=== PATIENT | female | born 1970 | race Caucasian/White ===

== ENCOUNTER → 2020-11-14 12:37 | Outpatient (CLI) | payer BC, SELFPAY ==
--- NOTE | ~2020-11-14 | US_ITS ---
EXAMINATION: US pelvic complete w TV DATE: 11/14/2020 13:36 INDICATION: Pelvic pain Comparison:No prior studies for comparison. TECHNIQUE: Multiple transabdominal and endovaginal sonographic images of the pelvis performed. FINDINGS: The uterus measures 10.1 x 5.2 x 5.2 cm. The endometrial complex measures 8 mm. The right ovary measures 2.7 x 1.8 x 2.4 cm and the left ovary measures 2 x 1.1 x 1.7 cm. There are small follicles in each ovary. There is no free fluid in the pelvis. There are no abnormal masses seen on either side. IMPRESSION: 1. Unremarkable pelvic ultrasound. Reviewed, dictated and finalized at location A. [facility]
== END ==
PROVIDERS: Visit Provider Physician Assistant
DX: R10.2 Pelvic and perineal pain (principal)
CPT/HCPCS: 76830; 76856

== ENCOUNTER 2022-07-05 18:55 | Emergency (ER) | payer BC, SELFPAY ==
--- NOTE | ~2022-07-05 | CT_ITS ---
EXAMINATION: CT brain wo con DATE: 07/05/2022 21:19 INDICATION: h/a . TECHNIQUE: Computed tomography (CT) of the head was performed without intravenous contrast. The mA wa s adjusted according to patient size. Iterative reconstruction technique was employed. The dose-lengt h product was 605.33 mGy-cm. COMPARISON: None FINDINGS: No acute intracranial hemorrhage or extra-axial fluid collection. No hydrocephalus, mass, or herniation. No acute ischemic infarct. Unremarkable dural venous sinus attenuation. No acute osseous abnormality. The aerated spaces are clear. IMPRESSION: No acute intracranial process. Reviewed, dictated and finalized at location K.
[2022-07-05 18:59] VITALS: BP 129/82; PULSE 93; RESP 18; TEMP 36.8; O2SAT 100
--- NOTE | 2022-07-05 21:41 | ED.GENADULT ---
HPI - General Adult General Chief complaint: Headache Stated complaint: NICOLAS x3 weeks Time Seen by Provider: 07/05/22 21:06 History of Present Illness HPI narrative: 52-year-old female with history of daily headaches presenting the emergency department for evaluation of a headache for the last 3 to 4 weeks. Patient states normally her headaches are across her forehead but she states this headache is behind her eyes. Patient has taken multiple medications including NSAIDs decongestants and sumatriptan for the headache with no significant improvement. Patient denies any associated numbness or weakness. Patient does have a remote history of thyroid cancer and she was 21. Related Data Home Medications Medication Instructions Recorded Confirmed levothyroxine 137 mcg capsule 137 mcg PO DAILY 11/25/21 11/25/21 Allergies Allergy/AdvReac Type Severity Reaction Status Date / Time acetaminophen Allergy Unknown Unknown Verified 11/25/21 15:46 dichloralphenazone Allergy Unknown Unknown Verified 11/25/21 15:46 isometheptene Allergy Unknown Unknown Verified 11/25/21 15:46 Shrimp Allergy Unknown Unknown Uncoded 11/11/20 08:56 Review of Systems Review of Systems: CONSTITUTIONAL: Denies fever, chills, or sweats. EYES: Denies visual changes, redness, or discharge. ENT: Denies rhinorrhea, congestion, sore throat, or otalgia. CARDIOVASCULAR: Denies chest pain, palpitations, or edema. RESPIRATORY: Denies cough or dyspnea. GASTROINTESTINAL: Denies abdominal pain, nausea, vomiting, or diarrhea. GENITOURINARY: Denies dysuria or hematuria. SKIN: Denies rash or itching. MUSCULOSKELETAL: Denies back pain, joint pain, or myalgia. NEUROLOGIC: Headache but denies any associated numbness or weakness. PSYCHIATRIC: Denies anxiety or depression. [facility] Social History Social History Alcohol intake: never Exam Narrative: APPEARANCE: Well appearing, no pain, no distress, well-nourished. HEAD: normocephalic, atraumatic. EYES: PERRLA/EOMI, conjunctivae clear. NOSE: Normal no drainage NECK: Supple. No adenopathy, no masses. RESPIRATORY: Airway patent, respirations nonlabored. Clear to auscultation bilaterally, no rales, rhonchi, wheezing. CARDIOVASCULAR: Regular rate and rhythm without murmurs rubs or gallops. ABDOMINAL: Soft, nontender, nondistended, normal bowel sounds MUSCULOSKELETAL: Moves all extremities. Strength/ROM intact, No edema, No calf tenderness. NEURO: Alert. Cranial nerves II through XII intact. Grossly intact. No ataxia, normal strength and reflexes. SKIN: Warm, dry. Normal Color Course Course Emergency Course: Patient does feel improved with treatment. Patient is requesting discharge to home. Patient states her headache is resolved. Vital Signs Vital signs: Vital Signs Temperature 98.2 F 07/05/22 18:59 Pulse Rate 93 07/05/22 18:59 Respiratory Rate 18 07/05/22 18:59 Blood Pressure 129/82 07/05/22 18:59 Pulse Oximetry 100 07/05/22 18:59 Oxygen Delivery Room Air 07/05/22 18:59 Temperature 98.2 F 07/05/22 18:59 Pulse Rate 75 07/05/22 23:27 Respiratory Rate 18 07/05/22 23:27 Blood Pressure 125/86 07/05/22 23:27 Pulse Oximetry 98 07/05/22 23:27 Oxygen Delivery Room Air 07/05/22 18:59 Medical Decision Making Vital Signs Vital Signs: Vital Signs Temperature 98.2 F 07/05/22 18:59 Pulse Rate 93 07/05/22 18:59 Respiratory Rate 18 07/05/22 18:59 Blood Pressure 129/82 07/05/22 18:59 Pulse Oximetry 100 07/05/22 18:59 Oxygen Delivery Room Air 07/05/22 18:59 Temperature 98.2 F 07/05/22 18:59 Pulse Rate 75 07/05/22 23:27 Respiratory Rate 18 07/05/22 23:27 Blood Pressure 125/86 07/05/22 23:27 Pulse Oximetry 98 07/05/22 23:27 Oxygen Delivery Room Air 07/05/22 18:59 Discharge Plan Discharge Clinical Impression: Headache Patient Disposition: Home, Self-Care Condition: Stable
[2022-07-05] MEDS: PROCHLORPERAZINE EDISYLATE 10 MG/2 ML VIAL IV PUSH (22:06)
[2022-07-05] MEDS: diphenhydrAMINE HCl INJ 50 MG/ML VIAL 25 MG IV PUSH (22:06)
[2022-07-05] MEDS: KETOROLAC 15 MG/ML VIAL (*BKC) IV PUSH (22:06)
[2022-07-05] MEDS: SODIUM CHLORIDE 0.9% IV 1,000 ML 999 ML IV CONT (22:07)
[2022-07-05 23:27] VITALS: BP 125/86; PULSE 75; RESP 18; O2SAT 98
== END 2022-07-05 23:26 | disposition home or self-care (01) ==
PROVIDERS: Emergency Provider Emergency Medicine; PCP Family Medicine
DX: R51.9 Headache, unspecified (principal); Z85.850 Personal history of malignant neoplasm of thyroid
CPT/HCPCS: 70450; 96361; 96374; 96375; 99284; J0780; J1200; J1885; J7030

== ENCOUNTER 2022-08-20 15:20 | Observation (INO) | payer BC, SELFPAY ==
--- NOTE | ~2022-08-20 | MR_ITS ---
EXAMINATION: MR brain/brain stem wo/w con DATE: 08/21/2022 07:31 CDT INDICATION: Today. Right-sided paresthesias. TECHNIQUE: Magnetic resonance imaging (MRI) of the brain and brainstem was performed without and with 13 cc MultiHance intravenous contrast. Sequences included sagittal and axial T1-weighted SE, axial diffusion-weighted FS SE, axial T2*-weighted GRE, axial T2-weighted FLAIR Propeller, and axial T2-miguelangel ghted Propeller. Apparent diffusion coefficient (ADC) maps were created. COMPARISON: Comparison to multiple prior studies sequentially, with oldest reviewed study dated 12/2014. FINDINGS: The brain volume and ventricular system are within normal limits. The brain parenchymal si gnal intensity pattern and melo/white matter is normal and there is no evidence of hemorrhage, space occupying masses or infarctions. The flow signal voids of the major arterial structures about the [place] and within the suresh r dural venous sinuses appear grossly unremarkable and patent. The seventh and eighth cranial nerve complexes are normal. The mid sagittal image demonstrates a normal craniovertebral junction and cleo us callosum. Small mucous retention cyst right maxillary sinus. No abnormal contrast enhancement was appreciated. IMPRESSION: 1: No acute intracranial abnormality. Reviewed, dictated and finalized at location A.
--- NOTE | ~2022-08-20 | CT_ITS ---
EXAMINATION: CT BRAIN W/O DATE: 08/20/2022 17:41 INDICATION: Headache. TECHNIQUE: Computed tomography (CT) of the head was performed without intravenous contrast. The dose- length product was 605.33 mGy-cm. Automated exposure control and iterative reconstruction technique w ere employed. COMPARISON: CT dated 07/05/2022 FINDINGS: Normal brain parenchymal volume for age. Normal melo-white differentiation. No acute intrac ranial hemorrhage, infarction, mass or mass effect. No ventriculomegaly or midline shift. Midline sagittal images demonstrate a normal corpus callosum, c raniovertebral junction and sella turcica. Basilar cisterns are patent. Paranasal sinuses and mastoids are pneumatized. No depressed skull fractures. IMPRESSION: 1. No acute intracranial abnormality. Reviewed, dictated and finalized at location A.
[2022-08-20 15:55] VITALS: BP 114/71; PULSE 76; RESP 16; TEMP 36.3; O2SAT 99
[2022-08-20 17:33] VITALS: BP 132/78; PULSE 80; RESP 16; O2SAT 100
[2022-08-20 17:45] VITALS: BP 132/78; PULSE 80; RESP 18; O2SAT 100
--- NOTE | 2022-08-20 18:04 | ED.HA ---
HPI - Headache General Chief Complaint: Headache <Estella Sevilla PA-C - Last Filed: 08/20/22 20:26> Stated Complaint: headache <TITUS Veronica Last Filed: 08/20/22 20:26> Time Seen by Provider: 08/20/22 17:28 <Estella Sevilla PA-C - Last Filed: 08/20/22 20:26> Source: patient <TITUS Veronica Last Filed: 08/20/22 20:26> Mode of arrival: ambulatory <TITUS Veronica Last Filed: 08/20/22 20:26> Limitations: no limitations <TITUS Veronica Last Filed: 08/20/22 20:26> History of Present Illness HPI Narrative: This is a 52-year-old female that presents the emergency department for headaches ongoing over the last month. Reports she does have history of tension headaches and migraine headaches. But she has been having worsening headaches over the last couple of months. She was evaluated in the ER for this and had a migraine cocktail with improvement. Reports over the last couple of days she has had right-sided paresthesias associated with her headaches. Also reports she has had difficulty concentrating. Denies vision changes, vomiting, or weakness. <Estella Sevilla PA-C - Last Filed: 08/20/22 20:26> Related Data Home Medications: Home Medications Medication Instructions Recorded Confirmed levothyroxine 137 mcg capsule 137 mcg PO DAILY 11/25/21 08/20/22 cholecalciferol (vitamin D3) 50 50 mcg PO DAILY 08/20/22 08/20/22 mcg (2,000 unit) capsule loratadine 10 mg tablet (Claritin) 10 mg PO DAILY 08/20/22 08/20/22 <TITUS Veronica Last Filed: 08/20/22 20:26> Allergies/Adverse Reactions: Allergies Allergy/AdvReac Type Severity Reaction Status Date / Time dichloralphenazone Allergy Unknown Hyperactive Verified 08/20/22 16:02 isometheptene Allergy Unknown Hyperactive Verified 08/20/22 16:02 Shrimp Allergy Unknown Swelling Uncoded 08/20/22 16:02 of Lip/Tongue/Throat <Estella Sevilla PA-C - Last Filed: 08/20/22 20:26> Review of Systems Review of Systems: CONSTITUTIONAL: Denies fever EYES: Denies visual changes GASTROINTESTINAL: Denies vomiting NEUROLOGIC: Reports headache. Denies numbness, or weakness. <Estella Sevilla PA-C - Last Filed: 08/20/22 20:26> All systems reviewed & are unremarkable except as noted in HPI and below <Estella Sevilla PA-C - Last Filed: 08/20/22 20:26> [facility] Past Medical History Medical History: Medical History (Updated 08/20/22 @ 20:23 by Estella Sevilla PA-C) Hypothyroidism, unspecified <Estella Sevilla PA-C - Last Filed: 08/20/22 20:26> Social History Social History: Social History (Updated 08/20/22 @ 13:54 by Christian Wright MA) Smoking status: Never smoker Alcohol intake: never Substance use: never Substance use type: does not use Gender identity (if verbalized by the patient): Female Spiritual care concerns: No Agree to blood products: Yes <Estella Sevilla PA-C - Last Filed: 08/20/22 20:26> Exam Narrative: GENERAL: Well-appearing, well-nourished, and in no acute distress. HEAD: Normocephalic, atraumatic. EYES: PERRLA and EOMI. ENT: Nares clear, no rhinorrhea or epistaxis. Mucous membranes moist. Oropharynx without tonsillar hypertrophy exudate or other lesions. Bilateral TMs pearly melo non-bulging NECK: Supple. No adenopathy or masses. CHEST: Clear to auscultation. No respiratory distress. No wheezes rales or rhonchi HEART: Regular rate and rhythm. No murmur heard. Normal peripheral pulses. EXTREMITIES: Normal range of motion. No edema. SKIN: Warm, dry, no rash. NEURO: No focal deficits. Alert and oriented x3. Cranial nerves II through XII grossly intact. Normal [id number] PSYCH: Normal mood and affect <Estella Sevilla PA-C - Last Filed: 08/20/22 20:26> Course DOUGH CUTTER/PA Physician Supervision For this encounter, I have reviewed the mid-level provider documentation, treatment plan and medical decision making. I have had
[2022-08-20] MEDS: SODIUM CHLORIDE 0.9% IV 1,000 ML 999 ML IV CONT (18:17)
[2022-08-20 18:43] LABS: Basophils Percent Auto 0.6 % (0.2-1.2); Eosinophils Absolute Auto 0.1 K/mm3 (0-0.3); Hematocrit 38.5 % (37.0-47.0); Hemoglobin 12.7 g/dL (12.0-15.0); Immature Granulocyte Absolute 0.02 K/mm3 (0.00-0.031); Immature Granulocyte Percent A 0.3 % (0-0.5); Lymphocytes Absolute Auto 2.37 K/mm3 (0.9-3.2); Lymphocytes Percent Auto 33.1 % (18.3-44.2); Mean Corpuscular Hemoglobin 29.1 pg (26-34); Mean Corpuscular Volume 88.3 fl (80-100); Mean Platelet Volume 9.3 fl (7.4-10.4); Monocytes Absolute Auto 0.5 K/mm3 (0.1-0.6); Monocytes Percent Auto 6.7 % (2.6-8.5); Neutrophils Absolute Auto 4.2 K/mm3 (1.3-6.7); Neutrophils Percent Auto 58.3 % (45.5-73.1); Platelet Count Result 289 k/mm3 (150-375); Red Blood Count 4.36 M/mm3 (4.2-5.4); Red Cell Distribution Width 12.5 % (11.5-14.5); White Blood Count 7.2 K/mm3 (4.5-10.0)
[2022-08-20 18:45] VITALS: BP 120/71; PULSE 70; RESP 15; O2SAT 99
[2022-08-20 18:46] LABS: Appearance Urine Clear (Clear); Bilirubin Urine Negative (Negative); Blood Urine Negative (Negative); Color Urine Yellow (Yellow); Glucose Urine UA Negative (Negative); Ketones Urine Negative (Negative); Leukocyte Esterase Ur Trace LEU/UL (Negative); Nitrate Urine Negative (Negative); Protein Urine Negative (Negative); Specific Grav Ur 1.015 (1.001-1.035); Urobilinogen Urine 0.2 mg/dL (<2.0); pH Urine 7.5 (5.0-9.0)
[2022-08-20 18:56] LABS: Alanine Aminotransferase 12 U/L (6-35); Albumin Level 4.1 g/dL (3.5-5.1); Alkaline Phosphatase 77 U/L (38-126); Anion Gap 9 mmol/L (8-16); Aspartate Amino Transferase 19 U/L (14-36); Bilirubin,Total 0.5 mg/dL (0.2-1.3); Blood Urea Nitrogen 13 mg/dL (7-17); Calcium 8.1 mg/dL (8.4-10.2); Carbon Dioxide 22 mmol/L (22-30); Chloride 108 mmol/L (98-107); Estimated CRCL calculation 64 ml/min; Estimated Glomerular Filt Rate > 60; Glucose 87 mg/dL (65-110); Potassium 3.7 mmol/L (3.4-5.0); Sodium 139 mmol/L (137-145)
[2022-08-20 18:58] LABS: RBC Urine 0-2 /hpf (0-2); Squamous Epithelial Cell Urine Occasional /hpf (Few); WBC Urine 0-3 /hpf
[2022-08-20 19:09] LABS: Add Urine Microscopic? YES
--- NOTE | 2022-08-20 20:24 | ECG_ITS ---
Measurements Intervals [place] Rate: 61 P: 59 FL: 140 QRS: 58 QRSD: 81 T: 53 QT: 438 QTc: 443 Interpretive Statements SINUS RHYTHM LOW QRS VOLTAGE IN PRECORDIAL LEADS BORDERLINE ECG NO PREVIOUS ECG AVAILABLE FOR COMPARISON Electronically Signed On 08-21-2022 8:45:38 CDT by Rosas Guillory D.O.
--- NOTE | 2022-08-20 21:03 | ADMGEN ---
This patient, Freida Lima, was admitted to Medical Room 347-01. Patient/family oriented to hospital policies and general routines including ID bracelet, bed and alarms, visiting hours, pain management, procedures, bathroom and other care routines, personal items, smoking policy, room service/diet, and visiting hours. Information on how to activate the Rapid Response Team has been discussed. Patient/Family are encouraged to report perceived risks to care and to ask questions if they do not understand what they are told or what they should do.
[2022-08-20 21:11] VITALS: PULSE 70; RESP 18
[2022-08-20 21:15] VITALS: BP 132/90; PULSE 98; RESP 22; TEMP 36.7; O2SAT 100
[2022-08-20 21:16] VITALS: BMI 24.3
[2022-08-20 21:35] VITALS: BMI 23.4
[2022-08-21] VITALS: PULSE 64
--- NOTE | 2022-08-21 01:00 | PM.IMHP ---
H&P: HPI History of Present Illness Date/Time: 08/21/22 01:00 Chief Complaint: Headache. Narrative: This is a very pleasant 52-year-old female with history of thyroid cancer status post radioactive iodine ablation with postablative hypothyroidism, chronic headaches, and fibromyalgia who presented to the emergency department for evaluation of headache. She has a history of chronic headaches over the years and previously saw a neurologist at [facility] in [place]. Over the last month or more she has started to have headaches that are different than her usual headaches. The headache encompasses the entire head and she is having sensitivity with light and sounds, paresthesias on the right side of her face and right arm, slow mentation, and occasional slurred speech and blurry vision. She was started on topiramate a couple of days ago which seems to have helped somewhat. 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 Due to the new neurologic symptoms, she is being admitted overnight for close monitoring and further evaluation. She denies vertigo, focal weakness, facial droop, dysarthria, and dysphagia. No syncope or near syncope. No chest pain, pleuritic pain, or palpitations. Review of Systems Review of Systems: Twelve systems were reviewed and are negative except for as per HPI. [facility] Past Medical History Medical History (Updated 08/21/22 @ 02:13 by Oralia Duran PA-C) Fibromyalgia Gastroesophageal reflux disease Hypothyroidism, postablative Thyroid cancer Vitamin D deficiency Surgical History Surgical History (Updated 08/21/22 @ 02:11 by Oralia Duran PA-C) History of appendectomy History of cholecystectomy History of dilation and curettage Family History Family History Other Family history non-contributory Social History Social History (Updated 08/21/22 @ 02:12 by Oralia Duran PA-C) Social History: Surrogate medical decision maker: Francisco Javier Lima, spouse. Code status: Full code. Smoking status: Never smoker Alcohol intake: never Substance use: never Substance use type: does not use Spiritual care concerns: No Agree to blood products: Yes Meds Home Medications and Allergies Home Medications Medication Instructions Recorded Confirmed Type ergocalciferol (vitamin D2) 1,250 50,000 unit PO [id number] 08/20/22 08/20/22 History mcg (50,000 unit) capsule (Vitamin D2) levothyroxine 150 mcg tablet 150 mcg PO DAILY 08/20/22 08/20/22 History (Synthroid) loratadine 10 mg tablet (Claritin) 10 mg PO DAILY 08/20/22 08/20/22 History meloxicam 7.5 mg tablet 7.5 mg PO DAILY 08/20/22 08/20/22 History Allergies Allergy/AdvReac Type Severity Reaction Status Date / Time dichloralphenazone Allergy Unknown Hyperactive Verified 08/20/22 16:02 isometheptene Allergy Unknown Hyperactive Verified 08/20/22 16:02 Shrimp Allergy Unknown Swelling Uncoded 08/20/22 16:02 of Lip/Tongue/Throat Vital Signs Vital Signs - 24 hr 08/20/22 15:55 08/20/22 17:33 08/20/22 17:45 Temperature 97.3 F L Pulse Rate 76 80 80 Respiratory Rate 16 16 18 Blood Pressure 114/71 132/78 132/78 Pulse Oximetry 99 100 100 Oxygen Delivery Room Air 08/20/22 18:45 08/20/22 21:11 08/20/22 21:15 Temperature 98.1 F Pulse Rate 70 70 98 Respiratory Rate 15 18 22 H Blood Pressure 120/71 132/90 Pulse Oximetry 99 100 Oxygen Delivery Exam Narrative: General: Well-developed, well-nourished female in the semi-Hickey position in bed in no distress. Weight: 68 kilograms. BMI: 23.5. HEENT: Normocephalic, atraumatic. PERRL, EOMI. Sclera anicteric. Oral mucosa moist. Oropharynx clear. Neck: Supple. No carotid bruits. Respiratory: Lungs are clear to auscultation bilaterally. Cardiovascular: Regular rate and rhythm with S1-S2. No murmur, r
[2022-08-21 03:34] LABS: Thyroid Stimulating Hormone Reflex 0.025 uIU/mL (0.465-4.68)
[2022-08-21 04:00] VITALS: PULSE 63
[2022-08-21 04:41] LABS: Folic Acid > 20.0 ng/mL (2.76->20)
[2022-08-21 06:00] VITALS: BP 106/58; PULSE 78; RESP 16; TEMP 36.7; O2SAT 97
[2022-08-21] MEDS: ACETAMINOPHEN 500 MG TABLET 1000 MG PO (06:28)
[2022-08-21 07:17] LABS: Free T4 Free Thyroxine Reflex 1.59 ng/dL (0.78-2.19)
[2022-08-21] MEDS: MELOXICAM 7.5 MG TABLET PO (09:10)
[2022-08-21] MEDS: LORATADINE 10 MG TABLET PO (09:10)
[2022-08-21] MEDS: LEVOTHYROXINE SODIUM 150 MCG TABLET PO (09:10)
[2022-08-21 11:30] LABS: Total Triiodothyronine (T3) 1.01 NG/ML (0.97-1.69)
--- NOTE | 2022-08-21 13:12 | WPDNEURCNPN ---
Assessment and Plan Assessment and plan (1) Complicated migraine: Code(s): G43.109 - Migraine with aura, not intractable, without status migrainosus Status: Acute (2) Fibromyalgia: Code(s): M79.7 - Fibromyalgia Status: Acute (3) Moyamoya disease: Code(s): I67.5 - Moyamoya disease Status: Acute Plan complicated migraine but considering the history of moyamoya disease in the family and her extreme anxiety about that CTA of the brain will be obtained as an outpatient at this stage she can be discharged and we also obtain the echocardiogram if any further questions arise please do not hesitate to contact me I have advised her to call my office on Tuesday Consult date: 08/21/22 Time Seen: 11:45 Reason for consult: headache HPI: Freida Lima is a 52 year old female admitted to the hospital through the emergency room with the ongoing complaints of headache of at least 4 weeks duration in addition to the history of possible tension headaches and migraine headaches, she received the migraine cocktail with improvement in the emergency room but she also mentioned that she has noted the right-sided paresthesia along with the headaches and she has difficulties in concentration, her outpatient medications included only loratadine 10 mg daily levothyroxine 137 micro grabbed daily and vitamin D3 50 micro neo day. She is known to be allergic to isometheptene and dye chloral [place] zone, she has never smoker never alcohol intake initial examination in the Emergency Room nonfocal, including the normal vital signs, she was admitted to the hospital for the complaints of right sided paresthesia, she does have ongoing history of thyroid cancer has undergone radioactive iodine ablation with post ablation hypothyroidism and chronic headache with fibromyalgia she had been started on topiramate a couple of days ago which has helped somewhat but she also have left carotid artery stenosis congenital for which reason topiramate was not given to her and her son has moyamoya disease, evaluation up until now has documented normal routine lab negative CT scan and normal MRI Review of Systems Review of Systems: All systems reviewed & are unremarkable except as noted in HPI and below PMFSH Past Medical History Medical History (Updated 08/21/22 @ 13:21 by Yash Howard MD) Fibromyalgia Gastroesophageal reflux disease Hypothyroidism, postablative Thyroid cancer Vitamin D deficiency Surgical History Surgical History (Updated 08/21/22 @ 02:11 by Oralia Duran PA-C) History of appendectomy History of cholecystectomy History of dilation and curettage Family History Family History Other Family history non-contributory Social History Social History (Updated 08/21/22 @ 02:12 by Oralia Duran PA-C) Social History: Surrogate medical decision maker: Francisco Javier Whitearz, spouse. Code status: Full code. Smoking status: Never smoker Alcohol intake: never Substance use: never Substance use type: does not use Spiritual care concerns: No Agree to blood products: Yes Meds Home Medications and Allergies Home Medications Medication Instructions Recorded Confirmed Type ergocalciferol (vitamin D2) 1,250 50,000 unit PO [id number] 08/20/22 08/20/22 History mcg (50,000 unit) capsule (Vitamin D2) levothyroxine 150 mcg tablet 150 mcg PO DAILY 08/20/22 08/20/22 History (Synthroid) loratadine 10 mg tablet (Claritin) 10 mg PO DAILY 08/20/22 08/20/22 History meloxicam 7.5 mg tablet 7.5 mg PO DAILY 08/20/22 08/20/22 History Allergies Allergy/AdvReac Type Severity Reaction Status Date / Time dichloralphenazone Allergy Unknown Hyperactive Verified 08/20/22 16:02 isometheptene Allergy Unknown Hyperactive Verified 08/20/22 16:02 Shrimp Allergy Unknown Swelling Uncoded 08/20/22 16:02 of Lip/Tongue/Throat Vital Signs Vital S
--- NOTE | 2022-08-21 14:29 | PM.DS ---
DS: Admitting Diagnosis Discharge Date 08/21/2022 Admitting Diagnosis Headache with Paresthesias DS: Discharge Diagnosis Discharge Diagnosis (1) Complicated migraine: Code(s): G43.109 - Migraine with aura, not intractable, without status migrainosus Status: Acute Assessment and Plan: - In setting of acute paresthesias and occasional forgetfulness and difficulty functioning - Associated Nausea, photo and phonophobia - Right side numbness, weakness, and transient word apraxia. - Advil has helped the pain in the past, but is not helping this one. - Symptoms first occurred 6 weeks ago and have started to disrupt her daily life. - MRI here negative, CT head here negative - ECHO, CTA to be performed as outpatient as pt. has hx of Moyamoya disease. - Lyme disease titer pending as pt. reports she has found ticks on her outside within the past month. - B12 normal. - Dr. Howard evaluated and will follow up on Tuesday. (2) Moyamoya disease: Code(s): I67.5 - Moyamoya disease Status: Acute Assessment and Plan: - CTA of brain to be performed as outpatient. (3) Hypothyroidism, postablative: Code(s): E89.0 - Postprocedural hypothyroidism Status: Acute Assessment and Plan: - Due to partial thyroidectomy from thyroid cancer. DS: Summary Hospital Course Reason for hospitalization: Headache Hospital Course: This very pleasant 52 year old female patient with significant PMH of FM, GERD, Hypothyroidism, Thyroid cancer, Moyamoya syndrome, and Vitamin d deficiency presented to the ER last evening with complaints of having a headache. She has had a chronic headache that has changed gradually over the past six weeks and she has developed new symptoms with the pain. She states her pain is now all over her head and moves around all over the head. In addition she has a numb and tingling feeling on the right side of her face and down into the right upper and right lower extremity. She has nausea, blurry vision in her right eye, feels fatigued, forgetful, cannot find her words at times and at times cannot speak correctly or cohesive. She has no family history of MS and she has never had these symptoms before. There is no acute findings on the imaging that has been performed here including CT brain, MRI with and without of the brain. She was admitted and examined by Dr. Howard and he gave the OK for discharge at this time and will perform further workup as outpatient with CTA brain and ECHO. She is stable for discharge at this time without any deficits. Status at Discharge Functional status at discharge: independent ambulation Overall status at discharge: patient is back to baseline Time Spent with Patient Time attestation: Total time spent providing and/or coordinating discharge services: Time spent: Greater than 30 minutes Specific discharge activities: Follow up, discharge planning Exam Const: General: comfortable and no acute distress HENMT: General nose exam: Normal nares present Mouth: Yes moist mucous membranes Eyes: General: appearance normal, both eyes and all related structures Sclera: sclerae normal Pupils: Equal, round and reactive pupils present EOM: EOMs intact bilaterally Neck: Neck: supple and no JVD Carotids: no bruits Lymphatic: lymphadenopathy not noted Resp: Effort & Inspection: normal respiratory effort Auscultation: clear to auscultation bilaterally Cardio: Rate: regular rate Rhythm: regular rhythm Heart sounds: no gallops, no murmurs and no rubs GI: Inspection: non-distended GI Palp: Yes Soft to palpation, No Tenderness to palpation present (GI) and No Guarding due to palpation present (GI) Auscultation: normal bowel sounds Skin: General skin exam: normal color, rashes and/or lesions noted and no erythema Lesions: no lesions noted Rashes: no rashes noted Wounds: no wounds Neuro: General: gait normal and deep tendon reflexes 2+ bilaterally Motor exam (neuro): 5/5 dilcia
== END 2022-08-21 15:10 | disposition home or self-care (01) ==
LOC: ANHED 20:23 → ANH3MED 20:30
PROVIDERS: Physician Assistant; Admitting Provider Internal Medicine; Emergency Provider Emergency Medicine; PCP Emergency Medicine; Visit Provider Nurse Practitioner Adult Health
DX: G43.109 Migraine with aura, not intractable, without status migrainosus (principal); R20.2 Paresthesia of skin; I67.5 Moyamoya disease; M79.7 Fibromyalgia; R29.90 Unspecified symptoms and signs involving the nervous system; E89.0 Postprocedural hypothyroidism; K21.9 Gastro-esophageal reflux disease without esophagitis; E55.9 Vitamin D deficiency, unspecified; Z85.850 Personal history of malignant neoplasm of thyroid
CPT/HCPCS: 36415; 70450; 70553; 80053; 81001; 82306; 82607; 82746; 84439; 84443; 84480; 85025; 93005; 96365; 99285; A9270; A9577; G0378; J0131; J7030

== ENCOUNTER 2022-09-20 09:39 | Outpatient (CLI) | payer BC, SELFPAY ==
[2022-09-24 07:49] LABS: Lyme Disease Ab (IgM), Blot Negative (Negative); Lyme Disease Ab(IgG), Blot Negative (Negative)
== END 2022-09-20 09:40 | disposition home or self-care (01) ==
PROVIDERS: PCP Emergency Medicine; Visit Provider Emergency Medicine
DX: R20.2 Paresthesia of skin (principal)
CPT/HCPCS: 36415; 86617

== ENCOUNTER 2022-10-11 12:36 | Outpatient (CLI) | payer BC, SELFPAY ==
--- NOTE | ~2022-10-11 | MR_ITS ---
EXAMINATION: MR cervical spine wo/w con DATE: 10/11/2022 15:09 INDICATION: Neck pain. Arm paresthesias. TECHNIQUE: Magnetic resonance imaging (MRI) of the cervical spine was performed without and with 13 m L MultiHance intravenous contrast. Sequences included sagittal and axial T2-weighted FSE, sagittal T2 -weighted FS FSE, and sagittal and axial T1-weighted FSE. Postcontrast sequences included sagittal an d axial T1-weighted FS FSE. COMPARISON: Cervical spine radiographs 02/10/2015 FINDINGS: There is 5 degrees dextrocurvature of cervical spine. Vertebral body heights are normal. Th ere is moderately decreased disc height at C4-C5 and C5-C6 and mildly decreased disc height at C6-C7. The following disc levels are specifically discussed: C2-C3: The disc does not extend beyond the endplate margin. There is no uncovertebral joint osteoarth ritis. There is mild right and severe left facet joint osteoarthritis. There is mild left neural fora brian stenosis. There is no central canal stenosis. C3-C4: The disc does not extend beyond the endplate margin. There is no uncovertebral joint osteoarth ritis. There is mild left facet joint osteoarthritis. There is no neural foraminal stenosis. There is no central canal stenosis. C4-C5: The disc is bulging. There is mild bilateral uncovertebral joint osteoarthritis. There is no f acet joint osteoarthritis. There is mild left neural foraminal stenosis. There is mild central canal stenosis. C5-C6: The disc is bulging. There is mild bilateral uncovertebral joint osteoarthritis. There is mild left facet joint osteoarthritis. There is no neural foraminal stenosis. There is mild central canal stenosis. C6-C7: The disc is bulging. There is mild bilateral uncovertebral joint osteoarthritis. There is mild bilateral facet joint osteoarthritis. There is no neural foraminal stenosis. There is mild central c anal stenosis. C7-T1: There is a central protrusion. There is no uncovertebral joint osteoarthritis. There is severe bilateral facet joint osteoarthritis. There is mild bilateral neural foraminal stenosis. There is no central canal stenosis. IMPRESSION: 1. Moderate cervical spondylosis. Reviewed, dictated and finalized at location A. UTIVE ADVISOR
--- NOTE | ~2022-10-11 | CT_ITS ---
EXAMINATION: CTA brain carotid DATE: 10/11/2022 14:32 INDICATION: Right face, arm, and leg numbness. Neck pain. TECHNIQUE: Computed tomographic angiography (CTA) of the head was performed without and with 100 mL O mnipaque-350 intravenous contrast. CTA of the neck was performed with intravenous contrast. Automated exposure control and iterative reconstruction technique were employed. The dose-length product was 1 591.32 mGy-cm. Maximum intensity projection and volume rendered 3D-reconstructions were created by krystina antoine technologist on a separate workstation. COMPARISON: Head CT 08/20/2022, brain MRI 08/21/2022 FINDINGS: HEAD CTA: There is no intracranial hemorrhage, acute infarction, or abnormal intracranial mass lesion . The ventricles are normal in size. The paranasal sinuses are clear. The mastoid air cells are adeline l. The orbits are normal. The vertebral arteries are codominant. There is no significant stenosis of basilar artery or the posterior cerebral arteries. There is no significant stenosis of the intracrani al internal carotid arteries or anterior or middle cerebral arteries. Anterior communicating artery i s normal. The posterior communicating arteries are normal. There is no aneurysm. NECK CTA: There are no pathologically enlarged lymph nodes. There is no significant stenosis of the v ertebral arteries. There is no visible plaque in the proximal internal carotid arteries. There is 0% stenosis of the proximal right internal carotid artery relative to normal distal artery lumen diamete r (NASCET criteria). There is 0% stenosis of the proximal left internal carotid artery relative to no rmal distal artery lumen diameter. There is moderate cervical spondylosis. IMPRESSION: 1. Normal brain. 2. No aneurysm or significant intracranial arterial stenosis. 3. 0% stenosis of the proximal internal carotid arteries relative to normal distal artery lumen diame ters (NASCET criteria). Reviewed, dictated and finalized at location A. HMOVING PLANT OPERATOR IMPRESSION: 1. Normal brain. 2. No aneurysm or significant intracranial arterial stenosis. 3. 0% stenosis of the proximal internal carotid arteries relative to normal dis gabby artery lumen diameters (NASCET criteria).
--- NOTE | 2022-10-11 12:47 | ECHO_ITS ---
Patient Info Name: Freida Lima Age: 52 years : 1970 Gender: Female Ht: 67 in Wt: 145 lbs BSA: 1.77 m2 HR: 78 bpm BP: 106 / 65 mmHg Technical Quality: Good Exam Date: 10/11/2022 1:38 PM Exam Location: [facility]monary Patient Status: Outpatient Admit Date: 10/11/2022 Staff Ordering Physician: Perry Albarran MD Electronic Organ Technician: Carlos Catalan RDCS, RT Attending Provider: Perry Albarran MD Referring Physician: Avis TERRELL; Exam Type: CA echo doppler color flow Study Info Indications R42 - Dizziness and giddiness Complete two-dimensional, color flow and Doppler transthoracic echocardiogram is performed. Strain analysis performed. Summary 1. Complete two-dimensional, color flow and Doppler transthoracic echocardiogram is performed. 2. Left ventricular chamber dimension is normal. 3. Left ventricular systolic function is normal, estimated at 60-65%. 4. The left ventricular diastolic function is grade I diastolic dysfunction. 5. E/e' 4 is not elevated. 6. Global longitudinal strain is normal at -20.1%. 7. There is trace aortic valve regurgitation. Left Ventricle E/e' 4 is not elevated. Global longitudinal strain is normal at -20.1%. Left ventricular chamber dimension is normal. Left ventricular systolic function is normal, estimated at 60-65%. The left ventricular diastolic function is grade I diastolic dysfunction. Right Ventricle Right ventricular systolic function is normal and with normal TAPSE 2.0 cm. Right ventricular chamber dimension is normal. Left Atria Left atrial chamber dimension is normal. Right Atria Right atrial chamber dimension is normal. Aortic Valve The aortic valve is trileaflet. There is no aortic valve stenosis. There is trace aortic valve regurgitation. Pulmonic Valve There is no pulmonic regurgitation. Mitral Valve There is no mitral valve stenosis. There is no mitral valve regurgitation. Tricuspid Valve There is no tricuspid valve regurgitation. Pericardium/Pleural There is no pericardial effusion. Inferior Vena Cava Normal inferior vena cava with >50% collapse upon inspiration consistent with normal right atrial pressure, 5 mmHg. Aorta The aortic root size at the sinus of Valsalva is normal. Left Ventricular Outflow Tract Name Value Normal LVOT 2D LVOT Diameter 2.0 cm LVOT Doppler LVOT Peak Gradient 5 mmHg LVOT Mean Gradient 2 mmHg LVOT VTI 19 cm LVOT VTI/AV VTI Ratio 0.9 LVOT Stroke Volume 62 ml LVOT CO 5.4 l/min LVOT CI 3.0 l/min/m2 Mitral Valve Name Value Normal MV Doppler MV Decel Hayes 314 cm/s2 MV PHT
--- NOTE | 2022-10-11 14:01 | ECG_ITS ---
Measurements Intervals Homer Rate: 73 P: 59 DE: 152 QRS: 57 QRSD: 77 T: 46 QT: 395 QTc: 437 Interpretive Statements SINUS RHYTHM LOW QRS VOLTAGE IN PRECORDIAL LEADS BORDERLINE ECG COMPARED TO ECG 08/20/2022 23:08:49 NO SIGNIFICANT CHANGES Electronically Signed On 10-11-2022 14:45:16 OPERATIONS TECHNICIAN by Rosas Guillory D.O.
== END 2022-10-11 12:37 | disposition home or self-care (01) ==
PROVIDERS: PCP Emergency Medicine; Visit Provider Emergency Medicine
DX: R42 Dizziness and giddiness (principal); R20.2 Paresthesia of skin; M47.892 Other spondylosis, cervical region; R94.31 Abnormal electrocardiogram [ECG] [EKG]
CPT/HCPCS: 70496; 70498; 72156; 93005; 93306; A9577; Q9967

== ENCOUNTER 2022-11-09 10:11 | Outpatient (CLI) | payer BC, SELFPAY ==
--- NOTE | 2022-11-09 11:00 | NEURO_ITS ---
Impression: # Complains of numbness of right hand. # No Carpal Tunnel Syndrome or ulnar neuropathy. # Needle/EMG exam mildly neurogenic in Pronator Teres. # Clinical correlation recommended. Motor Nerve Conduction Upper Extremities Median Nerve Conduction Velocity (m/sec) Terminal Latency (msec) Response Voltage(mV) Elbow-Wrist Wrist Elbow Wrist Right 58 2.9 8 11 Left Ulnar Nerve Conduction Velocity (m/sec) Terminal Latency (msec) Response Voltage(mV) Above Elbow Below Elbow Wrist Above Elbow Below Elbow Wrist Right 60 2.9 6 6 Left F-Wave Latency Median (ms) Ulnar (ms) Right 28.6 28.8 Left Sensory Nerve Conduction Upper Extremities Median Nerve Stimulation Terminal Latency (msec) Wrist/Digit Response Voltage (uV) Wrist Right 3.3/3.1 64/82 Left Ulnar Nerve Stimulation Terminal Latency (msec) Wrist/Digit Response Voltage (uV) Wrist Right 2.8 32 Left Radial Nerve Terminal Latency (msec) Response Voltage(mV) Right 3.0 30 Left Left Right Muscles Examined Fibrillation Fasciculation Scarcity Voltage Duration Left Right Left Right Left Right Left Right Left Right Deltoid Biceps X Brachioradialis Triceps X Pronator Teres Reduced >12ms X Ext Indicis X Ext Digitorum X Abd Poll Brev X 1st Dorsal Interosseus Paraspinals MTDD
== END 2022-11-09 10:12 | disposition home or self-care (01) ==
LOC: ANHNEURO 10:12
PROVIDERS: PCP Emergency Medicine; Visit Provider Emergency Medicine
DX: R20.0 Anesthesia of skin (principal)
CPT/HCPCS: 95886; 95909

== ENCOUNTER → 2022-12-22 11:20 | Outpatient (CLI) | payer BC, SELFPAY ==
--- NOTE | ~2022-12-22 | MR_ITS ---
EXAMINATION: MR cervical spine wo/w con DATE: 12/22/2022 12:35 INDICATION: Several months neck pain and right-sided paresthesias TECHNIQUE: Magnetic resonance imaging (MRI) of the cervical spine was performed without and with 13 m L Multihance intravenous contrast. Sequences included sagittal T2-weighted FSE, sagittal T2-weighted FS FSE, sagittal T1-weighted FSE, axial T2-weighted FSE, and axial T1-weighted SE. Postcontrast seque nces included sagittal T1-weighted FS FSE, and axial T1-weighted FS SE. COMPARISON: 12/11/2021 FINDINGS: 8 degrees cervical dextrocurvature. Sagittal alignment is normal. Vertebral body heights are normal. Bone marrow signal intensity is normal. Moderate disc height loss at C4-C5 and C5-C6. Mild disc hei ght loss at C6-C7. Cord signal intensity is normal. No abnormally enhancing lesions identified. The f ollowing disc levels are specifically discussed: C2-C3: The disc does not extend beyond the endplate margin. There is no uncovertebral joint osteoarth ritis. There is mild right and severe left facet joint osteoarthritis. There is mild left neural fora brian stenosis. There is no central canal stenosis. C3-C4: Disc is minimally bulging. There is no uncovertebral joint osteoarthritis. There is mild bilat eral facet joint osteoarthritis. There is no neural foraminal stenosis. There is no central canal rosalina nosis. C4-C5: Disc is bulging. There is moderate bilateral uncovertebral joint osteoarthritis. There is no f acet joint osteoarthritis. There is mild left neural foraminal stenosis. There is mild central canal stenosis. C5-C6: Disc is bulging. There is moderate left and mild right uncovertebral joint osteoarthritis. The re is mild left facet joint osteoarthritis. There is minimal left neural foraminal stenosis. There is mild central canal stenosis. C6-C7: Disc is bulging. There is mild left and moderate right uncovertebral joint osteoarthritis. The re is mild bilateral facet joint osteoarthritis. There is no neural foraminal stenosis. There is mild central canal stenosis. C7-T1: Small central disc protrusion. There is no uncovertebral joint osteoarthritis. There is severe bilateral facet joint osteoarthritis. There is mild bilateral neural foraminal stenosis. There is no central canal stenosis. IMPRESSION: 1. Moderate cervical spondylosis. No T2 hyperintense or abnormally enhancing cord lesions identified. Reviewed, dictated and finalized at location B. OMINIUM MANAGER IMPRESSION: 1. Moderate cervical spondylosis. No T2 hyperintense or abnormally enhancing co rd lesions identified.
--- NOTE | ~2022-12-22 | MR_ITS ---
MRI of the brain Clinical History: Right-sided paresthesia Technique: Axial and sagittal T1-weighted images were acquired. These were followed by axial T2-weigh екатерина, diffusion weighted, gradient, and FLAIR images. Following intravenous administration of 13 cc Mu ltiHance gadolinium, T1-weighted fat-sat imaging was performed in the axial and coronal planes. Findings: No significant signal abnormality seen in the brain parenchyma. No acute infarct, intracran ial hemorrhage, or mass lesion. Ventricles and subarachnoid spaces are unremarkable. Orbits are unremarkable. Paranasal sinuses and m astoid air cells are clear. Major intracranial flow voids appear intact. Sagittal midline structures are intact. No abnormal postcontrast enhancement identified. IMPRESSION: Unremarkable exam. Reviewed, dictated and finalized at location M. Y LIFT RIGGER IMPRESSION: Unremarkable exam.
--- NOTE | ~2022-12-22 | CT_ITS ---
EXAMINATION: CTA brain carotid DATE: 12/22/2022 12:09 INDICATION: Right-sided paresthesias. Headache and dizziness. TECHNIQUE: Computed tomographic angiography (CTA) of the head was performed without and with 100 mL O mnipaque-350 intravenous contrast. CTA of the neck was performed with intravenous contrast. Automated exposure control and iterative reconstruction technique were employed. The dose-length product was 1 334.19 mGy-cm. Maximum intensity projection and volume rendered 3D-reconstructions were created by krystina antoine technologist on a separate workstation. COMPARISON: Head CTA 10/11/2022, brain MRI 08/21/2022 FINDINGS: HEAD CTA: There is no intracranial hemorrhage, acute infarction, or abnormal intracranial mass lesion . The ventricles are normal in size. There is mild mucosal thickening in right maxillary sinus. The m astoid air cells are normal. The orbits are normal. The vertebral arteries are dominant. There is no significant stenosis of basilar artery or the posterior cerebral arteries. There is no significant st enosis of the intracranial internal carotid arteries or anterior or middle cerebral arteries. Left po sterior communicating artery is normal. A right posterior communicating artery is not identified. Ant erior communicating artery is normal. There is no aneurysm. NECK CTA: There are no pathologically enlarged lymph nodes. There is no significant stenosis of the v ertebral arteries. There is mild plaque in the proximal internal carotid arteries. There is 0% stenos is of the proximal right internal carotid artery relative to normal distal artery lumen diameter (MARIA LUISA CET criteria). There is 0% stenosis of the proximal left internal carotid artery relative to normal d istal artery lumen diameter. There is severe cervical spondylosis. IMPRESSION: 1. Normal brain. 2. No aneurysm or significant intracranial arterial stenosis. 3. 0% stenosis of the proximal internal carotid arteries relative to normal distal artery lumen diame ters (NASCET criteria). Reviewed, dictated and finalized at location A. R PURIFICATION CHEMIST IMPRESSION: 1. Normal brain. 2. No aneurysm or significant intracranial arterial stenosis. 3. 0% stenosis of the proximal internal carotid arteries relative to normal dis gabby artery lumen diameters (NASCET criteria).
== END ==
PROVIDERS: PCP Emergency Medicine; Visit Provider Student in an Organized Health Care Education/Training Program
DX: R20.2 Paresthesia of skin (principal); M47.892 Other spondylosis, cervical region
CPT/HCPCS: 70496; 70498; 70553; 72156; A9577; Q9967

== ENCOUNTER → 2023-05-05 12:55 | Outpatient (CLI) | payer BC, SELFPAY ==
--- NOTE | ~2023-05-05 | MM_ITS ---
EXAMINATION: MM screening jamar BI w diego HISTORY: Screening TECHNIQUE: Craniocaudal and mediolateral oblique 3-D tomosynthesis images were obtained and synthetic 2-D images were generated. CAD analysis was submitted and interpreted. COMPARISON: No prior mammogram is available for comparison at this institution. BREAST PARENCHYMAL COMPOSITION: The breasts are heterogeneously dense, which may obscure small masses . FINDINGS: There is no evidence of suspicious mass, calcification, or architectural distortion to sugg est malignancy in either breast. There has been no suspicious interval change. IMPRESSION: 1. No mammographic evidence of malignancy. 2. Recommend routine screening mammography in one year. BI-RADS Category 1: Negative Reviewed, dictated and finalized at location A.
== END ==
PROVIDERS: PCP Emergency Medicine; Visit Provider Obstetrics & Gynecology
DX: Z12.31 Encounter for screening mammogram for malignant neoplasm of breast (principal)
CPT/HCPCS: 77063; 77067

== ENCOUNTER 2023-06-10 10:50 | Outpatient (CLI) | payer BC, SELFPAY ==
--- NOTE | ~2023-06-10 | XR_ITS ---
Left Knee Technique: AP and lateral views were obtained. Clinical History: Pain Findings: No fracture or dislocation is seen. Osseous alignment is anatomic. Joint spaces are preserv ed without degenerative or erosive change. Soft tissues are unremarkable. No joint effusion is seen. Impression: Unremarkable left knee radiographs. Reviewed, dictated and finalized at location . Impression: Unremarkable left knee radiographs.
--- NOTE | ~2023-06-10 | XR_ITS ---
Cervical Spine: AP, open-mouth, and lateral views, with neutral, flexion, and extension positioning Clinical History: Pain Findings: The normal lordotic curve is maintained. No fracture identified. Minimal grade 1 retrolisth esis of C4 over C5 noted. No instability evident on flexion or extension. There is mild degenerative disc narrowing at C4-C5, C5-C6, and C6-C7. Pre-vertebral soft tissues are unremarkable. Impression: Minimal grade 1 retrolisthesis of C4 over C5. No instability seen. Mild degenerative change, as above. Reviewed, dictated and finalized at location . Impression: Minimal grade 1 retrolisthesis of C4 over C5. No instability seen. Mild degenerative change, as above.
== END 2023-06-10 10:51 | disposition home or self-care (01) ==
PROVIDERS: PCP Emergency Medicine; Visit Provider Emergency Medicine
DX: M54.2 Cervicalgia (principal); S89.92XA Unspecified injury of left lower leg, initial encounter; X58.XXXA Exposure to other specified factors, initial encounter
CPT/HCPCS: 72050; 73560

== ENCOUNTER 2024-07-16 12:39 | Outpatient (CLI) | payer BC, SELFPAY ==
[2024-07-16 15:01] LABS: Alanine Aminotransferase 13 U/L (6-35); Albumin Level 4.1 g/dL (3.5-5.1); Alkaline Phosphatase 70 U/L (38-126); Anion Gap 9 mmol/L (4-12); Aspartate Amino Transferase 54 U/L (14-36); Bilirubin,Total 0.7 mg/dL (0.2-1.3); Blood Urea Nitrogen 17 mg/dL (7-17); Calcium 8.4 mg/dL (8.4-10.2); Carbon Dioxide 28 mmol/L (22-30); Chloride 101 mmol/L (98-107); Estimated Glomerular Filt Rate > 60; Glucose 74 mg/dL (65-110); Potassium 4.2 mmol/L (3.4-5.0); Sodium 138 mmol/L (137-145)
[2024-07-16 16:33] LABS: Hemoglobin A1C 5.2 % (<5.7)
== END 2024-07-16 12:40 | disposition home or self-care (01) ==
PROVIDERS: PCP Emergency Medicine; Visit Provider Emergency Medicine
DX: Z01.818 Encounter for other preprocedural examination (principal)
CPT/HCPCS: 36415; 80053; 83036